=== PATIENT | male | born 1945 | race Caucasian/White ===

== ENCOUNTER 2019-08-31 19:21 | Inpatient (IN) | payer MEDICARE, OTHER ==
[~2019-08-31] VITALS: Ht 182.9 cm; Wt 87.2 kg
[2019-08-31] MEDS ORDERED: CYAN250010 PO (19:43)
[2019-08-31] MEDS ORDERED: LOSA25TA3 PO (19:43)
[2019-08-31] MEDS ORDERED: CHOL200078 PO (19:43)
[2019-08-31] MEDS ORDERED: ATOR20TA PO (19:43)
[2019-08-31] MEDS ORDERED: ASPI-1094 PO (19:43)
[2019-08-31] MEDS ORDERED: PANT40TA2 PO (19:43)
[2019-08-31] MEDS ORDERED: RANI300T7 PO (19:43)
--- NOTE | 2019-08-31 19:45 | NUR ---
Dr. Wynne at bedside for MSE.
[2019-08-31 20:08] LABS: BASOPHILS % (AUTO) 0.4 % (0.0-2.0); EOSINOPHILS # (AUTO) 0.3 K/uL (0.0-0.7); EOSINOPHILS % (AUTO) 4.7 % (0.0-7.0); HEMATOCRIT 40.1 % (36.7-47.1); HEMOGLOBIN 13.4 g/dL (12.5-16.3); MEAN CORPUSCULAR HEMOGLOBIN 31.9 uug (23.8-33.4); MEAN CORPUSCULAR HGB CONC 34 g/dL (32.5-36.3); MEAN CORPUSCULAR VOLUME 95.1 fL (73.0-96.2); MONOCYTES # (AUTO) 0.5 K/uL (2.0-10.0); MONOCYTES % (AUTO) 6.9 % (0.0-11.0); NEUTROPHILS # (AUTO) 3.1 K/uL (1.8-8.9); PLATELET COUNT (AUTO) 199 K/uL (152-348); RED BLOOD CELL COUNT(AUTO) 4.21 MIL/uL (4.06-5.63); WHITE BLOOD COUNT (AUTO) 6.9 K/uL (3.6-10.2)
--- NOTE | 2019-08-31 20:08 | NUR ---
Pt unable to provide urine sample at this time.
[2019-08-31 20:17] LABS: CARBON DIOXIDE 29 mmol/L (21-32); CHLORIDE 104 mmol/L (98-107); CREATININE 1.3 mg/dL (0.6-1.3); GLUCOSE 102 mg/dL (74-106); POTASSIUM 4.3 mmol/L (3.5-5.1); UREA NITROGEN, BLOOD 21 mg/dL (7-18)
[2019-08-31 20:23] LABS: ALANINE AMINOTRANSFERASE 18 U/L (16-63); ALKALINE PHOSPHATASE 93 U/L (50-136); ASPARTATE AMINOTRANSFERASE 21 U/L (15-37); BILIRUBIN,DIRECT 0.1 mg/dL (0.0-0.2); BILIRUBIN,TOTAL 0.3 mg/dL (0.2-1.0); TOTAL PROTEIN, SERUM 6.9 g/dL (6.4-8.2)
[2019-08-31 20:26] LABS: ETHANOL < 3 MG/DL (0-0)
--- NOTE | 2019-08-31 20:39 | NUR ---
Dr. Wynne on panel call with Reed Fontana NP.
--- NOTE | 2019-08-31 20:47 | NUR ---
Xray at bedside.
--- NOTE | 2019-08-31 21:00 | NUR ---
Report given to Lucita LYNN Tele.
--- NOTE | 2019-08-31 21:00 | NUR ---
Pt unable to provide urine still.
--- NOTE | 2019-08-31 21:10 | NUR ---
Called to page Dr. Garry Nick.
--- NOTE | 2019-08-31 21:12 | NUR ---
Dr. Wynne speaking with Pt's primary physician Dr. Garry Nick.
--- NOTE | 2019-08-31 21:53 | NUR ---
ADMITTED A 74 YEARS OLD MALE WITH DIAGNOSIS OF SYNCOPE. PATIENT AAOX4. IN NO ACUTE DISTRESS. DENIES ANY PAIN OR SOB. DENIES FURTHER NAUSEA. NO VOMITING. IV SITE ON RIGHT AC INTACT AND PATENT. NSR ON TELE WITH 1ST DEGREE AV BLOCK. ORIENTED TO UNIT. ROUTINE ADMISSION CARE DONE. PLAN OF CARE INITIATED. SAFETY MEASURE INITIATED AND CALL OLSON WITHIN REACHED.
[2019-08-31 22:17] VITALS: BP 141/75
[2019-08-31] MEDS ORDERED: MAGNESIUM HYDROXIDE 30 ML LIQUID UDC PO PRN (22:45)
[2019-08-31] MEDS ORDERED: ACETAMINOPHEN 325 MG TABLET PO PRN (22:45)
[2019-08-31] MEDS ORDERED: Z GUARD REMEDY PASTE 57 GM TUBE TOP PRN (22:45)
[2019-08-31] MEDS ORDERED: ONDANSETRON 4 MG/2 ML VIAL IV PRN (22:45)
[2019-08-31] MEDS: IV NS 1000 ML 1,000 ML IV PRN (23:12)
[2019-08-31 23:53] LABS: *BILIRUBIN,URIN NEGATIVE (NEGATIVE); *BLOOD, URINE NEGATIVE (NEGATIVE); *CLARITY,URINE CLEAR (CLEAR); *COLOR,URINE YELLOW (YELLOW); *KETONES,URINE NEGATIVE (NEGATIVE); *UROBILINOGEN,URINE 0.2 E.U./dl (NORMAL); LEUKOCYTE ESTERASE ,URINE NEGATIVE (NEGATIVE); NITRITE, URINE NEGATIVE (NEGATIVE); UGLUCOSE NEGATIVE (NEGATIVE)
[2019-09-01] VITALS (14 sets, daily range): BP systolic 117–157; BP diastolic 64–89
[2019-09-01 00:09] LABS: *AMPHETAMINE, URINE NEGATIVE (NEGATIVE); *BARBITURATE, URINE NEGATIVE (NEGATIVE); *CANNABINOID, URINE NEGATIVE (NEGATIVE); *COCCAINE, URINE NEGATIVE (NEGATIVE); *OPIATE, URINE NEGATIVE (NEGATIVE); *PHENCYCLIDINE SCREEN,URINE NEGATIVE (NEGATIVE)
--- NOTE | 2019-09-01 04:34 | NUR ---
Pt appeared to have a syncopal episode that lasted for 10seconds, asystole on monitor during episode then back to NSR at 68/min right after. Patient AAOx4 after episode. VS WNL. Complained of nausea, will give Zofran per order. Continue to monitor.
--- NOTE | 2019-09-01 06:23 | NUR ---
Patient confused and disoriented. In no acute distress. On O2 at 4LPM via NC in place. HOB slightly elevated. O2 sat at 92%. IV site on left wrist intact and patent. No adverse reaction noted from IV ABX. Sinus Sal on tele with BBB at 58/min. Safety measure maintained and call keene within reach. Addendum: 09/01/19 at 0624 by RISHI CUNNINGHAM RN wrong documentation.
--- NOTE | 2019-09-01 06:24 | NUR ---
AAOX4. In no acute distress. Denies any pain or SOB. Episode of nausea and given Zofran 4mg PRN per order and effective. NSR on tele with AV block at 69/min. IV site on right AC remians intact and patent. IVF infusing. Needs attended to and met. Safety measure maintained and call keene within reached.
[2019-09-01] MEDS: PANTOPRAZOLE SODIUM 40 MG TABLET.DR PO SCH (06:35)
[2019-09-01 06:44] LABS: BASOPHILS % (AUTO) 0.7 % (0.0-2.0); EOSINOPHILS # (AUTO) 0.2 K/uL (0.0-0.7); EOSINOPHILS % (AUTO) 3.1 % (0.0-7.0); HEMATOCRIT 38.9 % (36.7-47.1); HEMOGLOBIN 13.2 g/dL (12.5-16.3); LYMPHOCYTES % (AUTO) 29.2 % (20.5-51.5); MEAN CORPUSCULAR HEMOGLOBIN 32.4 uug (23.8-33.4); MEAN CORPUSCULAR HGB CONC 34 g/dL (32.5-36.3); MEAN CORPUSCULAR VOLUME 95.7 fL (73.0-96.2); MONOCYTES # (AUTO) 0.6 K/uL (2.0-10.0); MONOCYTES % (AUTO) 8.4 % (0.0-11.0); NEUTROPHILS % (AUTO) 58.6 % (38.5-71.5); PLATELET COUNT (AUTO) 194 K/uL (152-348); RED BLOOD CELL COUNT(AUTO) 4.07 MIL/uL (4.06-5.63); WHITE BLOOD COUNT (AUTO) 6.8 K/uL (3.6-10.2)
--- NOTE | 2019-09-01 06:51 | NUR ---
Pt appeared to have had another syncopal episode that lasted for 24 seconds, asystole on monitor during episode then back to NSR at 70/min right after. Patient AAOx4 after episode. VS as follow: BP 129/39, HR 76, RR 18, temp 98.0 O2 sat at 97% on RA.. Continue to monitor.
[2019-09-01 06:56] LABS: THYROID STIMULATING HORMONE 2.249 mIU/mL (0.358-3.740)
--- NOTE | 2019-09-01 07:05 | NUR ---
Pt appeared to have had another syncopal episode that lasted for 10 seconds, asystole on monitor during episode then back to NSR at 76/min right after. Patient AAOx4 after episode. Complained of nausea. Called CT, spoke to Jem to have CT of head done Stat. Continue to monitor. Days shift LEAH Pichardo aware and present.
[2019-09-01 07:06] LABS: BILIRUBIN,TOTAL 0.4 mg/dL (0.2-1.0); CREATININE 1.2 mg/dL (0.6-1.3); PHOSPHOROUS 1.8 mg/dL (2.5-4.9); POTASSIUM 4.3 mmol/L (3.5-5.1); TOTAL PROTEIN, SERUM 6.5 g/dL (6.4-8.2)
--- NOTE | 2019-09-01 07:06 | NUR ---
principal technical architect informed RN to check patient who is asystole in the monitor. patient awake but looking spacy and pale. immediately taken to Radiology for head CT Addendum: 09/01/19 at 0946 by JULISA SALAS RN Amended: Links added.
--- NOTE | 2019-09-01 07:26 | NUR ---
Patient transported to CT by copier technician, via wheelchair.
--- NOTE | 2019-09-01 07:33 | NUR ---
Dr. Fontana made aware of syncopal/asystole episode. Awaiting for any new order.
[2019-09-01] MEDS: CHOLECALCIFEROL 1,000 UNIT TABLET PO SCH (09:00)
[2019-09-01] MEDS: LOSARTAN POTASSIUM 25 MG TABLET PO SCH (09:00)
[2019-09-01] MEDS ORDERED: ASPIRIN 81 MG TAB.CHEW PO SCH (09:00)
--- NOTE | 2019-09-01 09:47 | NUR ---
talked to VIDYA hodgson patient's condition. will call dr Hernandez. Addendum: 09/01/19 at 48 by JULISA SALAS RN Amended: Links added. Addendum: 09/01/19 at 49 by JULISA SALAS RN Amended: Links added. Addendum: 09/01/19 at 49 by JULISA SALAS RN Amended: Links added.
--- NOTE | 2019-09-01 09:49 | NUR ---
dr hope ordered transfer patient to the [facility] Addendum: 09/01/19 at 0949 by JULISA SALAS RN Amended: Links added.
--- NOTE | 2019-09-01 10:00 | NUR ---
0900 medications not given .patient getting ready to transfer to [facility] Addendum: 09/01/19 at 1838 by JULISA SALAS RN Amended: Links added.
--- NOTE | 2019-09-01 10:00 | NUR ---
Recieved pt from 3rd floor with a c/o of syncope and a 3rd dgree pauses on monitor. Pt is awake and orientedx3.
--- NOTE | 2019-09-01 10:45 | NUR ---
Seen and examined by Dr Hernandez, spoken with family members for length. Consent signed for a Temporary insertion of a transluminal pacer wires at the bedside. Explained to the pt with good understanding.
[2019-09-01] MEDS ORDERED: IOHEXOL-240 MG , 50 ML VIAL IV ONE (12:00)
[2019-09-01] MEDS ORDERED: LIDOCAINE 1%-EPI 1:100,000 20 ML VIAL ONE (12:00)
[2019-09-01] MEDS ORDERED: BACITRACIN 50,000 UNITS VIAL ONE (12:00)
[2019-09-01] MEDS ORDERED: MIDAZOLAM HCL 2 MG/2 ML VIAL ONE (12:42)
--- NOTE | 2019-09-01 13:00 | NUR ---
P_t is taken to OR for a Permanent Pacemaker Insertion. NPO. Consent is signed. Condition is stable.
[2019-09-01] MEDS ORDERED: LIDOCAINE HCL 1% 20 ML VIAL ONE (13:02)
[2019-09-01] MEDS ORDERED: HYDROCODONE/APAP 5-325MG TABLET ONE (14:06)
--- NOTE | 2019-09-01 15:00 | NUR ---
Pt brought back from recovery room via [place]. Awake and orientedx4
[2019-09-01] MEDS ORDERED: NEUTRA PHOS PACKET PO ONE ×2 (15:15→18:45)
--- NOTE | 2019-09-01 16:00 | NUR ---
Dressing on the left upper chest is clean dry and intact. Denies of any pain. Instructed pt not to elevate left arm above his head. VSS. Pt desires to go to sleep.
--- NOTE | 2019-09-01 19:45 | NUR ---
Received pt HOB elevated, awake, AxO x4, able to make needs known. Family members at bedside. Pt on 2L NC saturating 96%. NSR on monitor. No acute distress noted. Pt able to reposition independently and able to ambulate. Urinal at bedside. Pt denies SOB, dizziness or n/v. Pt complains of headache 03/28 at this time. Will administer pain medication. Dressing on left upper chest wall clean, dry and intact. Assessment completed. Call light within reach. Will continue to monitor.
[2019-09-01] MEDS: HYDROCODONE/APAP 5-325MG TABLET PO PRN (20:30)
[2019-09-01] MEDS ORDERED: ATORVASTATIN 20 MG TABLET PO SCH (21:00)
[2019-09-01] MEDS: IV NS 1000 ML 1,000 ML IV PRN (22:11)
--- NOTE | 2019-09-01 22:15 | NUR ---
Cordis catheter removed aseptically. Placed guaze and held direct pressure for 5 minutes without incident. Pt tolerated removal well. Will continue to monitor.
[2019-09-02] VITALS (11 sets, daily range): BP systolic 138–163; BP diastolic 70–93
[2019-09-02] MEDS: HYDROCODONE/APAP 5-325MG TABLET PO PRN (04:56)
[2019-09-02 05:26] LABS: BASOPHILS % (AUTO) 0.4 % (0.0-2.0); EOSINOPHILS # (AUTO) 0.1 K/uL (0.0-0.7); HEMATOCRIT 36.8 % (36.7-47.1); HEMOGLOBIN 12.2 g/dL (12.5-16.3); LYMPHOCYTES # (AUTO) 2.1 K/uL (20.0-40.0); LYMPHOCYTES % (AUTO) 28.3 % (20.5-51.5); MEAN CORPUSCULAR HEMOGLOBIN 31.6 uug (23.8-33.4); MEAN CORPUSCULAR HGB CONC 33 g/dL (32.5-36.3); MEAN CORPUSCULAR VOLUME 95.4 fL (73.0-96.2); MONOCYTES # (AUTO) 0.6 K/uL (2.0-10.0); MONOCYTES % (AUTO) 8.3 % (0.0-11.0); NEUTROPHILS # (AUTO) 4.6 K/uL (1.8-8.9); PLATELET COUNT (AUTO) 176 K/uL (152-348); RED BLOOD CELL COUNT(AUTO) 3.85 MIL/uL (4.06-5.63); WHITE BLOOD COUNT (AUTO) 7.4 K/uL (3.6-10.2)
[2019-09-02 05:32] LABS: BILIRUBIN,TOTAL 0.5 mg/dL (0.2-1.0); MAGNESIUM 1.8 mg/dL (1.8-2.4); PHOSPHOROUS 2.2 mg/dL (2.5-4.9); POTASSIUM 3.9 mmol/L (3.5-5.1)
--- NOTE | 2019-09-02 06:00 | NUR ---
No significant change throughout the night. AM care provided. NORCO PO 1 tab given x2 for headache with relief. Pt tolerating 2L NC, O2 sats up to 99%. No acute distress noted. SR on monitor with HR 60. Snacks offered. Call light within reach. Will continue to monitor. Addendum: 09/02/19 at 0618 by VIRAJ SCHROEDER RN @0615 Medications Cozaar and Protonix given at this time, per patient request. Pt states he takes these meds early in the morning.
[2019-09-02] MEDS: LOSARTAN POTASSIUM 25 MG TABLET PO SCH (06:11)
[2019-09-02] MEDS: PANTOPRAZOLE SODIUM 40 MG TABLET.DR PO SCH (06:13)
--- NOTE | 2019-09-02 07:30 | NUR ---
Recieved pt lying in bed awake, alert and orientedx3. HR is SR in the 70-80. No pacer beats at this time. Pacemaker on his left upper chest with dressing clean, dry and intact. No c/o pain on the site.
[2019-09-02] MEDS: CHOLECALCIFEROL 1,000 UNIT TABLET PO SCH (09:21)
--- NOTE | 2019-09-02 09:30 | NUR ---
Seen and examined by Dr Pineda with order to DC home. DC IVF.
--- NOTE | 2019-09-02 09:45 | NUR ---
Notiified Reed DASILVA regarding pt's ok for discharge per Dr Obrien. Will see the patient.
--- NOTE | 2019-09-02 10:00 | NUR ---
Pt ambulated to the bathroom, gait is steady. No c/o dizziness.
--- NOTE | 2019-09-02 10:00 | NUR ---
Family at the bedside. Pt ate good breakfast. No c/o dizziness, or chest pains.
--- NOTE | 2019-09-02 10:30 | NUR ---
Seen and examined by Reed DASILVA and talked to pt and family.
[2019-09-02] MEDS ORDERED: IV NORMAL SALINE 1000 ML BAG IV ONE ×2 (11:14)
[2019-09-02] MEDS ORDERED: CEFAZOLIN 1 G VIAL IM ONE (11:14)
--- NOTE | 2019-09-02 11:15 | NUR ---
Discharge instructions given to the pt and family with good understanding. Pt is discharged home via w/c. Condition is stable.
== END 2019-09-02 11:15 | disposition home or self-care (01) | DRG 242 ==
LOC: ER 19:23 → TELE3 21:06 → CCU 09-01 09:57
PROVIDERS: ADMIT Hospitalist; ATTEND Hospitalist
PROC: 0JH606Z Insertion of Pacemaker, Dual Chamber into Chest Subcutaneous Tissue and Fascia, Open Approach (ICD-10-PCS; principal; 2019-09-01)
PROC: 02HK3JZ Insertion of Pacemaker Lead into Right Ventricle, Percutaneous Approach (ICD-10-PCS; 2019-09-01)
PROC: 02H63JZ Insertion of Pacemaker Lead into Right Atrium, Percutaneous Approach (ICD-10-PCS; 2019-09-01)
PROC: 5A1223Z Performance of Cardiac Pacing, Continuous (ICD-10-PCS; 2019-09-01)
DX: I49.5 Sick sinus syndrome (principal); I46.9 Cardiac arrest, cause unspecified; I44.2 Atrioventricular block, complete; E78.5 Hyperlipidemia, unspecified; E83.39 Other disorders of phosphorus metabolism; K21.9 Gastro-esophageal reflux disease without esophagitis; Z82.49 Family history of ischemic heart disease and other diseases of the circulatory system; I10 Essential (primary) hypertension
CPT/HCPCS: 36415; 70030-TC; 70450; 71045; 80307; 83605; 83735; 84100; 84443; 85025; 85730; 87040; 87086; 93005; 93307; 93880; A4649; A4663; G0378; G0480; J0690; J2250; J2405; J3490; J7030; Q9966